=== PATIENT | female | born 1930 | race African-American/Black ===

== ENCOUNTER 2018-01-16 09:53 | Emergency (ER) | payer MEDICARE, MEDICAID ==
[~2018-01-16] VITALS: Ht 162.6 cm; Wt 54.0 kg
[~2018-01-16 09:53] MED LIST: ALBU6.7H INH; ASPI-1160 PO; CALC-993 PO; CEPH-569 PO; CLOP75TA16 PO; D-ME473S8 PO; GARL10005 PO; HYDR12.54 PO; LISI10TA5 PO; POLY17PO3 PO; SIMV20TA6 PO
[2018-01-16 10:58] LABS: BASOPHILS % 1.4 % (0.0-2.0); EOSINOPHILS % 3.1 % (0.0-5.0); HEMATOCRIT. 36.4 % (36.0-48.0); HEMOGLOBIN. 12.1 g/dL (12.0-16.0); MEAN CORPUSCULAR HEMOGLOBIN 27.4 pg (28.0-32.0); MEAN CORPUSCULAR VOLUME 82.6 fL (81.0-99.0); NEUTROPHILS % 47.5 % (40.0-76.0); PLATELET 212 x1000/uL (130-400); RED BLOOD CELL COUNT 4.41 mill/uL (4.2-5.4); RED CELL DISTRIBUTION WIDTH 17.5 % (11.6-14.6)
[2018-01-16 11:05] LABS: CHLORIDE 111 mEq/L (98-107); PROTHROMBIN TIME 10.8 sec (9.4-11.6)
[2018-01-16 11:08] LABS: CLARITY URINE TURBID (CLEAR); COLOR URINE YELLOW (YELLOW); KETONES URINE NEGATIVE (NEGATIVE); LEUKOCYTE ESTERASE URINE 3+ (NEGATIVE); NITRITE URINE POSITIVE (NEGATIVE); OCCULT BLOOD URINE 1+ (NEGATIVE); PROTEIN URINE TRACE (NEGATIVE); SPECIFIC GRAVITY URINE 1.013 (1.005-1.030); UROBILINOGEN URINE 0.2 E.U./dL (0.2-1.0)
[2018-01-16] MEDS ORDERED: SULFAMETHOXAZOLE/TRIMETHOPRIM 800/160MG TABLET PO NR (13:00)
[2018-01-16 14:48] VITALS: BP 156/85
== END 2018-01-16 14:48 | disposition home or self-care (01) ==
LOC: ER 09:53
DX: R68.83 Chills (without fever) (principal); N39.0 Urinary tract infection, site not specified; I25.10 Atherosclerotic heart disease of native coronary artery without angina pectoris; E78.00 Pure hypercholesterolemia, unspecified; I10 Essential (primary) hypertension; I25.2 Old myocardial infarction; Z95.1 Presence of aortocoronary bypass graft; Z79.82 Long term (current) use of aspirin; Z86.73 Personal history of transient ischemic attack (TIA), and cerebral infarction without residual deficits
CPT/HCPCS: 36415; 71045; 80053; 81003; 83880; 84145; 84484; 85025; 85610; 87077; 87086; 87186; 93005; 99285

== ENCOUNTER 2018-01-21 07:07 | Inpatient (IN) | payer MEDICARE, MEDICAID ==
[~2018-01-21] VITALS: Ht 167.6 cm; Wt 70.3 kg
[2018-01-21] MEDS ORDERED: SODIUM CHLORIDE 0.9% 1,000 ML IV ONE (07:30)
[2018-01-21 07:59] LABS: CHLORIDE 111 mEq/L (98-107)
[2018-01-21 08:02] LABS: BASOPHILS % 1.6 % (0.0-2.0); EOSINOPHILS % 2.7 % (0.0-5.0); HEMATOCRIT. 36.8 % (36.0-48.0); HEMOGLOBIN. 12.1 g/dL (12.0-16.0); LYMPHOCYTES % 36.5 % (20.0-50.0); MEAN CORPUSCULAR HEMOGLOBIN 27.1 pg (28.0-32.0); MEAN CORPUSCULAR VOLUME 82.1 fL (81.0-99.0); MEAN PLATELET VOLUME 10.2 fl (7.4-10.4); MONOCYTES % 10.1 % (2.0-8.0); NEUTROPHILS % 49.1 % (40.0-76.0); PLATELET 207 x1000/uL (130-400); RED BLOOD CELL COUNT 4.48 mill/uL (4.2-5.4); RED CELL DISTRIBUTION WIDTH 18.1 % (11.6-14.6)
[2018-01-21 08:08] LABS: CREATINE KINASE 120 IU/L (26-192)
[2018-01-21 09:16] LABS: CLARITY URINE CLEAR (CLEAR); COLOR URINE YELLOW (YELLOW); KETONES URINE NEGATIVE (NEGATIVE); LEUKOCYTE ESTERASE URINE 2+ (NEGATIVE); NITRITE URINE NEGATIVE (NEGATIVE); OCCULT BLOOD URINE NEGATIVE (NEGATIVE); PH URINE 6.5 (4.5-8.0); PROTEIN URINE NEGATIVE (NEGATIVE); SPECIFIC GRAVITY URINE 1.013 (1.005-1.030); UROBILINOGEN URINE 0.2 E.U./dL (0.2-1.0)
[2018-01-21] MEDS ORDERED: CEFTRIAXONE 1 G PREMIX 50 ML IV ONE (09:30)
[2018-01-21] MEDS ORDERED: KETOROLAC 15MG/ML VIAL IV ONE (09:45)
[2018-01-21 13:45] VITALS: BP 160/60
[2018-01-21] MEDS ORDERED: NA PHOS,M-B/NA PHOS,DI-BA ENEMA 118ML PR PRN (16:00)
[2018-01-21] MEDS ORDERED: ONDANSETRON HCL 4MG/2ML VIAL IV PRN (16:00)
[2018-01-21] MEDS ORDERED: DIPHENHYDRAMINE 50MG/ML VIAL IV PRN (16:00)
[2018-01-21] MEDS ORDERED: ACETAMINOPHEN 650MG SUPP PR PRN (16:00)
[2018-01-21] MEDS ORDERED: MAGNESIUM/ALUMINUM HYDROXIDE/SIMETHICONE 30ML UDC PO PRN (16:00)
[2018-01-21] MEDS ORDERED: GUAIFENESIN 200MG/10ML SUGAR FREE UDC PO PRN (16:00)
[2018-01-21] MEDS ORDERED: HYDROCODONE/ACETAMINOPHEN 5/325MG TABLET PO PRN (16:00)
[2018-01-21] MEDS ORDERED: ACETAMINOPHEN 650MG/20.3ML UDC GT PRN (16:00)
[2018-01-21] MEDS ORDERED: ENOXAPARIN 40MG/0.4ML SYR SUBCUT SCH (16:00)
[2018-01-21] MEDS ORDERED: CLONIDINE 0.1MG TABLET PO PRN (16:00)
[2018-01-21] MEDS ORDERED: ACETAMINOPHEN 325MG TABLET PO PRN (16:00)
[2018-01-21] MEDS ORDERED: DOCUSATE SODIUM 100MG CAPSULE PO PRN (16:00)
[2018-01-21 17:46] LABS: *AMPHETAMINES SCREEN URINE NEGATIVE (NEGATIVE); *BARBITURATES SCREEN URINE NEGATIVE (NEGATIVE); *BENZODIAZEPINES SCREEN URINE NEGATIVE (NEGATIVE); *COCAINE SCREEN URINE NEGATIVE (NEGATIVE)
[2018-01-21 17:47] LABS: METHADONE URINE SCREEN NEGATIVE (NEGATIVE); OPIATES URINE SCREEN NEGATIVE (NEGATIVE)
[2018-01-21] MEDS: SODIUM CHLORIDE 0.9% 1,000 ML IV SCH (17:51)
[2018-01-21] MEDS: ENOXAPARIN 30MG/0.3ML SYR SUBCUT SCH (17:51)
[2018-01-21 18:05] LABS: CANNABINOID URINE SCREEN NEGATIVE (NEGATIVE)
[2018-01-21 18:20] LABS: PHENCYCLIDINE URINE SCREEN NEGATIVE (NEGATIVE)
[2018-01-21 20:00] VITALS: BP 155/58
[2018-01-22] VITALS: BP 139/77
[2018-01-22 04:00] VITALS: BP 139/51
[2018-01-22 07:53] LABS: BASOPHILS % 1.5 % (0.0-2.0); EOSINOPHILS % 3.6 % (0.0-5.0); HEMATOCRIT. 36.2 % (36.0-48.0); HEMOGLOBIN. 11.8 g/dL (12.0-16.0); LYMPHOCYTES % 37.2 % (20.0-50.0); MEAN CORPUSCULAR HEMOGLOBIN 26.7 pg (28.0-32.0); MEAN CORPUSCULAR VOLUME 81.8 fL (81.0-99.0); MEAN PLATELET VOLUME 10.1 fl (7.4-10.4); MONOCYTES % 12.5 % (2.0-8.0); NEUTROPHILS % 45.2 % (40.0-76.0); PLATELET 201 x1000/uL (130-400); RED BLOOD CELL COUNT 4.42 mill/uL (4.2-5.4); RED CELL DISTRIBUTION WIDTH 17.7 % (11.6-14.6)
[2018-01-22 08:00] VITALS: BP 169/54
[2018-01-22 09:57] LABS: CHLORIDE 114 mEq/L (98-107)
[2018-01-22 10:18] LABS: HDL CHOLESTEROL 61 mg/dL (40-59)
[2018-01-22 10:20] LABS: LDL CHOLESTEROL 103 mg/dL (5-100)
[2018-01-22] MEDS: CEFTRIAXONE 1 G PREMIX 50 ML IV SCH (11:03)
[2018-01-22] MEDS: SODIUM CHLORIDE 0.9% 1,000 ML IV SCH ×2 (11:04→18:01)
[2018-01-22 12:00] VITALS: BP 162/66
[2018-01-22 16:00] VITALS: BP 152/87
[2018-01-22] MEDS: ENOXAPARIN 30MG/0.3ML SYR SUBCUT SCH (18:01)
[2018-01-22 20:00] VITALS: BP 170/62
[2018-01-23] VITALS: BP 159/46
[2018-01-23 04:00] VITALS: BP 139/49
[2018-01-23 08:00] VITALS: BP 158/63
[2018-01-23] MEDS: CEFTRIAXONE 1 G PREMIX 50 ML IV SCH (10:19)
[2018-01-23 12:00] VITALS: BP 152/59
[2018-01-23 16:00] VITALS: BP 115/70
[2018-01-23 19:10] VITALS: BP 115/70
[2018-01-23] MEDS: ENOXAPARIN 30MG/0.3ML SYR SUBCUT SCH (19:33)
== END 2018-01-23 20:15 | DRG 871 ==
LOC: ER 07:25 → 6EST 10:07 → ENRESERV 11:52
PROVIDERS: ADMIT Family Medicine; ATTEND Family Medicine
DX: A41.9 Sepsis, unspecified organism (principal); N17.0 Acute kidney failure with tubular necrosis; N39.0 Urinary tract infection, site not specified; I67.82 Cerebral ischemia; E44.1 Mild protein-calorie malnutrition; K57.30 Diverticulosis of large intestine without perforation or abscess without bleeding; I10 Essential (primary) hypertension; M19.90 Unspecified osteoarthritis, unspecified site; I25.10 Atherosclerotic heart disease of native coronary artery without angina pectoris; N28.1 Cyst of kidney, acquired; Z86.73 Personal history of transient ischemic attack (TIA), and cerebral infarction without residual deficits; Z87.440 Personal history of urinary (tract) infections; Z90.710 Acquired absence of both cervix and uterus; Z95.1 Presence of aortocoronary bypass graft; I25.2 Old myocardial infarction; Z79.1 Long term (current) use of non-steroidal anti-inflammatories (NSAID); Z88.1 Allergy status to other antibiotic agents; Z88.8 Allergy status to other drugs, medicaments and biological substances; Z79.51 Long term (current) use of inhaled steroids; Z79.899 Other long term (current) drug therapy; Z68.25 Body mass index [BMI] 25.0-25.9, adult; Z88.6 Allergy status to analgesic agent
CPT/HCPCS: 36415; 70450; 71045; 74176; 80053; 80061; 80305; 81003; 82550; 85025; 87086; 93005; 96374; 96375; 99285; C1893; J0696; J1650; J1885; J7030

== ENCOUNTER 2018-02-27 09:17 | Emergency (ER) | payer MEDICARE, MEDICAID ==
[~2018-02-27] VITALS: Ht 157.5 cm; Wt 76.0 kg
[2018-02-27 09:38] VITALS: BP 185/69
== END 2018-02-27 13:49 | disposition home or self-care (01) ==
LOC: ER 09:17
DX: H61.21 Impacted cerumen, right ear (principal); H66.91 Otitis media, unspecified, right ear; I11.9 Hypertensive heart disease without heart failure; I51.9 Heart disease, unspecified; Z88.8 Allergy status to other drugs, medicaments and biological substances; Z88.6 Allergy status to analgesic agent; Z88.1 Allergy status to other antibiotic agents
CPT/HCPCS: 69209; 99283

== ENCOUNTER 2018-07-28 10:56 | Emergency (ER) | payer OTHER, MEDICAID ==
[~2018-07-28] VITALS: Ht 152.4 cm; Wt 73.0 kg
[2018-07-28] MEDS ORDERED: ASPIRIN 81MG TABLET PO ONE (18:15)
[2018-07-28] MEDS ORDERED: FUROSEMIDE 40MG/4ML VIAL IV ONE (18:15)
[2018-07-28] MEDS ORDERED: LORAZEPAM 2MG/ML CPJ IM ONE (19:15)
[2018-07-28 19:27] LABS: BASOPHILS % 2.7 % (0.0-2.0); EOSINOPHILS % 3.5 % (0.0-5.0); HEMATOCRIT. 43.9 % (36.0-48.0); HEMOGLOBIN. 14.2 g/dL (12.0-16.0); LYMPHOCYTES % 33.1 % (20.0-50.0); MEAN CORPUSCULAR VOLUME 89.5 fL (81.0-99.0); MEAN PLATELET VOLUME 10.3 fl (7.4-10.4); MONOCYTES % 13.8 % (2.0-8.0); NEUTROPHILS % 46.9 % (40.0-76.0); PLATELET 175 x1000/uL (130-400); RED CELL DISTRIBUTION WIDTH 16.2 % (11.6-14.6)
[2018-07-28 19:29] LABS: CHLORIDE 114 mEq/L (98-107)
[2018-07-28 19:33] LABS: PROTHROMBIN TIME 10.5 sec (9.1-11.1)
[2018-07-28] MEDS ORDERED: CLONIDINE 0.2MG TABLET PO ONE (21:00)
[2018-07-29 00:30] VITALS: BP 100/45
== END 2018-07-29 00:30 | disposition short-term general hospital (02) ==
LOC: ER 11:38 → CANBEDREQ 07-29 01:52
DX: I11.9 Hypertensive heart disease without heart failure (principal); R06.02 Shortness of breath; R07.9 Chest pain, unspecified; Z86.73 Personal history of transient ischemic attack (TIA), and cerebral infarction without residual deficits; Z95.1 Presence of aortocoronary bypass graft; Z88.1 Allergy status to other antibiotic agents; Z88.6 Allergy status to analgesic agent; Z88.8 Allergy status to other drugs, medicaments and biological substances; Z79.01 Long term (current) use of anticoagulants; Z79.82 Long term (current) use of aspirin; Z79.899 Other long term (current) drug therapy
CPT/HCPCS: 36415; 71045; 80053; 83690; 83880; 84484; 85025; 85610; 85730; 93005; 93970; 96372; 96374; 99285; J1940; J2060

== ENCOUNTER 2018-08-02 06:28 | Emergency (ER) | payer OTHER, MEDICAID ==
[~2018-08-02] VITALS: Ht 160 cm; Wt 55.0 kg
[2018-08-02] MEDS ORDERED: ASPIRIN 325MG TABLET PO ONE (07:45)
[2018-08-02 07:55] LABS: BASOPHILS % 1.1 % (0.0-2.0); HEMATOCRIT. 40.5 % (36.0-48.0); HEMOGLOBIN. 13.5 g/dL (12.0-16.0); LYMPHOCYTES % 23.9 % (20.0-50.0); MEAN CORPUSCULAR HEMOGLOBIN 29.4 pg (28.0-32.0); MEAN CORPUSCULAR VOLUME 88.4 fL (81.0-99.0); MEAN PLATELET VOLUME 9.9 fl (7.4-10.4); MONOCYTES % 9.3 % (2.0-8.0); NEUTROPHILS % 63.7 % (40.0-76.0); PLATELET 156 x1000/uL (130-400); RED BLOOD CELL COUNT 4.58 mill/uL (4.2-5.4); RED CELL DISTRIBUTION WIDTH 16.6 % (11.6-14.6)
[2018-08-02 08:01] LABS: CHLORIDE 116 mEq/L (98-107)
[2018-08-02] MEDS ORDERED: CLONIDINE 0.1MG TABLET PO ONE (19:00)
[2018-08-02] MEDS ORDERED: FUROSEMIDE 20MG TABLET PO ONE (19:00)
[2018-08-02] MEDS ORDERED: ONDANSETRON HCL 4MG/2ML INJ IV ONE (21:15)
[2018-08-02] MEDS ORDERED: ONDANSETRON HCL 4MG/2ML INJ ONE (21:15)
[2018-08-02 23:05] VITALS: BP 110/91
== END 2018-08-02 23:26 | disposition home or self-care (01) ==
LOC: ER 06:28
DX: J11.1 Influenza due to unidentified influenza virus with other respiratory manifestations (principal); R07.9 Chest pain, unspecified; I11.9 Hypertensive heart disease without heart failure; Z88.1 Allergy status to other antibiotic agents; Z88.3 Allergy status to other anti-infective agents; Z88.6 Allergy status to analgesic agent; Z88.8 Allergy status to other drugs, medicaments and biological substances; Z95.1 Presence of aortocoronary bypass graft; Z79.82 Long term (current) use of aspirin; Z86.73 Personal history of transient ischemic attack (TIA), and cerebral infarction without residual deficits
CPT/HCPCS: 36415; 71045; 80053; 82962; 83880; 84484; 85025; 93005; 96374; 99284; J2405

== ENCOUNTER 2018-11-29 02:08 | Emergency (ER) | payer OTHER, MEDICAID ==
[~2018-11-29] VITALS: Ht 152.4 cm; Wt 54.0 kg
[~2018-11-29 02:08] MED LIST changes: -CLOP75TA16 PO; +CLOP75TA4 PO
[2018-11-29] MEDS ORDERED: ONDANSETRON HCL 4MG/2ML INJ IV STA (03:08)
[2018-11-29] MEDS ORDERED: MORPHINE SULFATE 4 MG/ML CPJ (NOT FOR IM USE) IV STA (03:08)
[2018-11-29] MEDS ORDERED: SODIUM CHLORIDE 0.9% 1,000 ML IV ONE (03:08)
[2018-11-29 03:47] LABS: CLARITY URINE CLOUDY (CLEAR); COLOR URINE YELLOW (YELLOW); KETONES URINE NEGATIVE (NEGATIVE); LEUKOCYTE ESTERASE URINE 3+ (NEGATIVE); NITRITE URINE NEGATIVE (NEGATIVE); OCCULT BLOOD URINE TRACE (NEGATIVE); PH URINE 5.5 (4.5-8.0); PROTEIN URINE NEGATIVE (NEGATIVE); SPECIFIC GRAVITY URINE 1.012 (1.005-1.030); UROBILINOGEN URINE 0.2 E.U./dL (0.2-1.0)
[2018-11-29 04:57] LABS: BASOPHILS % 0.8 % (0.0-2.0); EOSINOPHILS % 2.9 % (0.0-5.0); HEMATOCRIT. 39.9 % (36.0-48.0); HEMOGLOBIN. 13.3 g/dL (12.0-16.0); LYMPHOCYTES % 30.5 % (20.0-50.0); MEAN CORPUSCULAR HEMOGLOBIN 28.6 pg (28.0-32.0); MEAN CORPUSCULAR VOLUME 85.5 fL (81.0-99.0); MEAN PLATELET VOLUME 10.6 fl (7.4-10.4); MONOCYTES % 8.9 % (2.0-8.0); NEUTROPHILS % 56.9 % (40.0-76.0); PLATELET 185 x1000/uL (130-400); RED BLOOD CELL COUNT 4.67 mill/uL (4.2-5.4); RED CELL DISTRIBUTION WIDTH 16.9 % (11.6-14.6)
[2018-11-29 05:03] LABS: PARTIAL THROMBOPLASTIN TIME 27.5 sec (23.4-31.0)
[2018-11-29 05:11] LABS: CHLORIDE 111 mEq/L (98-107)
[2018-11-29] MEDS ORDERED: NITROFURANTOIN 100MG M/M CAPSULE PO ONE (05:15)
[2018-11-29 09:00] VITALS: BP 168/68
== END 2018-11-29 09:25 | disposition short-term general hospital (02) ==
LOC: ER 02:08 → EDBEDREQTM 05:52 → EDBEDREQ 05:52 → ENRESERV 07:11 → CANRESERV 07:11 → CANBEDREQ 07:17 → ER 09:25
DX: R53.1 Weakness (principal); N39.0 Urinary tract infection, site not specified; R60.9 Edema, unspecified; R55 Syncope and collapse; M71.22 Synovial cyst of popliteal space [Baker], left knee; I11.9 Hypertensive heart disease without heart failure; I25.2 Old myocardial infarction; M19.90 Unspecified osteoarthritis, unspecified site; Z86.73 Personal history of transient ischemic attack (TIA), and cerebral infarction without residual deficits; Z90.710 Acquired absence of both cervix and uterus; Z98.890 Other specified postprocedural states; Z95.1 Presence of aortocoronary bypass graft; Z79.82 Long term (current) use of aspirin; Z79.899 Other long term (current) drug therapy; Z88.1 Allergy status to other antibiotic agents; Z88.8 Allergy status to other drugs, medicaments and biological substances
CPT/HCPCS: 36415; 70450; 71045; 80053; 81003; 83880; 84484; 85025; 85610; 85730; 87086; 93005; 93970; 96374; 96375; 99285; J2270; J2405; J7030

== ENCOUNTER 2018-12-08 19:54 | Emergency (ER) | payer OTHER, MEDICAID ==
[~2018-12-08] VITALS: Ht 157.5 cm; Wt 71.0 kg
[2018-12-09] MEDS ORDERED: GUAIFENESIN/CODEINE 100-10MG/5ML UDC PO ONE (03:30)
[2018-12-09] MEDS ORDERED: IBUPROFEN 400MG TABLET PO ONE (03:30)
[2018-12-10 11:07] VITALS: BP 155/61
== END 2018-12-10 11:05 | disposition home or self-care (01) ==
LOC: ER 19:54
DX: R09.81 Nasal congestion (principal); I11.0 Hypertensive heart disease with heart failure; I50.9 Heart failure, unspecified; E78.00 Pure hypercholesterolemia, unspecified; Z88.3 Allergy status to other anti-infective agents; Z88.8 Allergy status to other drugs, medicaments and biological substances; Z95.1 Presence of aortocoronary bypass graft; Z79.82 Long term (current) use of aspirin; Z86.73 Personal history of transient ischemic attack (TIA), and cerebral infarction without residual deficits
CPT/HCPCS: 99283

== ENCOUNTER 2019-02-11 17:53 | Emergency (ER) | payer OTHER, MEDICAID ==
[~2019-02-11] VITALS: Ht 152.4 cm; Wt 75.0 kg
[2019-02-11] MEDS ORDERED: LORATADINE 10MG TABLET PO SCH (19:00)
[2019-02-11 19:30] VITALS: BP 150/59
== END 2019-02-11 19:35 | disposition home or self-care (01) ==
LOC: ER 19:01
DX: T78.40XA Allergy, unspecified, initial encounter (principal); I11.0 Hypertensive heart disease with heart failure; I50.9 Heart failure, unspecified; E78.00 Pure hypercholesterolemia, unspecified; M19.90 Unspecified osteoarthritis, unspecified site; X58.XXXA Exposure to other specified factors, initial encounter; Z88.3 Allergy status to other anti-infective agents; Z88.8 Allergy status to other drugs, medicaments and biological substances; Z95.1 Presence of aortocoronary bypass graft; Z79.82 Long term (current) use of aspirin; Z86.73 Personal history of transient ischemic attack (TIA), and cerebral infarction without residual deficits
CPT/HCPCS: 99282

== ENCOUNTER 2019-03-24 16:01 | Emergency (ER) | payer OTHER, MEDICAID ==
[~2019-03-24] VITALS: Ht 160 cm; Wt 61.0 kg
[2019-03-24 17:01] LABS: BASOPHILS % 1.8 % (0.0-2.0); EOSINOPHILS % 3.1 % (0.0-5.0); HEMOGLOBIN. 12.6 g/dL (12.0-16.0); LYMPHOCYTES % 31.6 % (20.0-50.0); MEAN CORPUSCULAR HEMOGLOBIN 29.3 pg (28.0-32.0); MEAN PLATELET VOLUME 10.1 fl (7.4-10.4); MONOCYTES % 11.5 % (2.0-8.0); PLATELET 201 x1000/uL (130-400); RED BLOOD CELL COUNT 4.31 mill/uL (4.2-5.4); RED CELL DISTRIBUTION WIDTH 16.6 % (11.6-14.6)
[2019-03-24 17:06] LABS: CHLORIDE 113 mEq/L (98-107)
[2019-03-24] MEDS ORDERED: ACETAMINOPHEN 325MG TABLET PO ONE (18:15)
[2019-03-24] MEDS ORDERED: ASPIRIN 81MG TABLET PO ONE (18:15)
[2019-03-24] MEDS ORDERED: CLONIDINE 0.1MG TABLET PO ONE (18:15)
[2019-03-24 20:40] VITALS: BP 167/81
== END 2019-03-24 21:22 | disposition short-term general hospital (02) ==
LOC: ER 16:01
DX: I11.0 Hypertensive heart disease with heart failure (principal); I50.9 Heart failure, unspecified; R07.89 Other chest pain; E78.00 Pure hypercholesterolemia, unspecified; Z95.1 Presence of aortocoronary bypass graft; Z86.73 Personal history of transient ischemic attack (TIA), and cerebral infarction without residual deficits; Z87.19 Personal history of other diseases of the digestive system; Z79.899 Other long term (current) drug therapy; Z88.8 Allergy status to other drugs, medicaments and biological substances; Z88.1 Allergy status to other antibiotic agents; Z88.2 Allergy status to sulfonamides
CPT/HCPCS: 36415; 71045; 83880; 84484; 93005; 99285

== ENCOUNTER 2019-04-03 23:39 | Emergency (ER) | payer OTHER, MEDICAID ==
[~2019-04-03] VITALS: Ht 154.9 cm; Wt 55.0 kg
[2019-04-04] MEDS ORDERED: LIDOCAINE 5% PATCH TOP STA (00:01)
[2019-04-04] MEDS ORDERED: MORPHINE SULFATE 2 MG/ML CPJ (NOT FOR IM USE) IV ONE (00:15)
[2019-04-04] MEDS ORDERED: ONDANSETRON HCL 4MG/2ML INJ IV ONE (00:15)
[2019-04-04] MEDS ORDERED: HYDROCODONE/ACETAMINOPHEN 10/325MG TABLET PO ONE (00:45)
[2019-04-04] MEDS ORDERED: ONDANSETRON 4MG ODT PO ONE (00:45)
[2019-04-04 01:07] LABS: EOSINOPHILS % 1.4 % (0.0-5.0); HEMATOCRIT. 36.5 % (36.0-48.0); HEMOGLOBIN. 12.2 g/dL (12.0-16.0); LYMPHOCYTES % 22.8 % (20.0-50.0); MEAN CORPUSCULAR VOLUME 89.4 fL (81.0-99.0); MEAN PLATELET VOLUME 10.5 fl (7.4-10.4); MONOCYTES % 11.6 % (2.0-8.0); NEUTROPHILS % 63.2 % (40.0-76.0); PLATELET 121 x1000/uL (130-400); RED BLOOD CELL COUNT 4.09 mill/uL (4.2-5.4); RED CELL DISTRIBUTION WIDTH 16.7 % (11.6-14.6)
[2019-04-04 01:13] LABS: CHLORIDE 110 mEq/L (98-107)
[2019-04-04 06:30] VITALS: BP 129/57
== END 2019-04-04 06:30 | disposition left against medical advice (07) ==
LOC: ER 04-04 00:19
DX: R10.9 Unspecified abdominal pain (principal); I10 Essential (primary) hypertension; Z88.1 Allergy status to other antibiotic agents; Z88.3 Allergy status to other anti-infective agents; Z88.8 Allergy status to other drugs, medicaments and biological substances; Z95.1 Presence of aortocoronary bypass graft; Z86.73 Personal history of transient ischemic attack (TIA), and cerebral infarction without residual deficits; Z98.890 Other specified postprocedural states
CPT/HCPCS: 36415; 80053; 83690; 85025; 99284; Q0162

== ENCOUNTER 2019-04-06 01:52 | Emergency (ER) | payer OTHER, MEDICAID ==
[~2019-04-06] VITALS: Ht 167.6 cm; Wt 66.0 kg
[2019-04-06] MEDS ORDERED: ACETAMINOPHEN 325MG TABLET PO ONE ×2 (05:45→13:45)
[2019-04-06] MEDS ORDERED: KETOROLAC 30MG/ML VIAL IV STA (06:09)
[2019-04-06 06:34] LABS: CHLORIDE 113 mEq/L (98-107)
[2019-04-06 06:36] LABS: PROTHROMBIN TIME 10.5 sec (9.6-11.0)
[2019-04-06 06:44] LABS: BASOPHILS % 0.8 % (0.0-2.0); HEMATOCRIT. 35.5 % (36.0-48.0); LYMPHOCYTES % 29.3 % (20.0-50.0); MEAN CORPUSCULAR HEMOGLOBIN 29.9 pg (28.0-32.0); MEAN CORPUSCULAR VOLUME 88.6 fL (81.0-99.0); MEAN PLATELET VOLUME 10.3 fl (7.4-10.4); MONOCYTES % 11.4 % (2.0-8.0); NEUTROPHILS % 54.5 % (40.0-76.0); PLATELET 125 x1000/uL (130-400); RED BLOOD CELL COUNT 4.01 mill/uL (4.2-5.4); RED CELL DISTRIBUTION WIDTH 16.5 % (11.6-14.6)
[2019-04-06 06:53] LABS: CLARITY URINE CLEAR (CLEAR); COLOR URINE YELLOW (YELLOW); KETONES URINE NEGATIVE (NEGATIVE); LEUKOCYTE ESTERASE URINE 1+ (NEGATIVE); NITRITE URINE NEGATIVE (NEGATIVE); OCCULT BLOOD URINE NEGATIVE (NEGATIVE); PROTEIN URINE NEGATIVE (NEGATIVE); UROBILINOGEN URINE 0.2 E.U./dL (0.2-1.0)
[2019-04-06] MEDS ORDERED: MAGNESIUM/ALUMINUM HYDROXIDE/SIMETHICONE 30ML UDC PO STA (20:58)
[2019-04-07] MEDS ORDERED: HYDROCHLOROTHIAZIDE 25MG TABLET PO ONE (08:30)
[2019-04-07] MEDS ORDERED: NITROFURANTOIN 100MG M/M CAPSULE PO ONE (15:45)
[2019-04-08] MEDS: NITROFURANTOIN 100MG M/M CAPSULE PO SCH ×2 (09:29→17:08)
[2019-04-08] MEDS ORDERED: HYDROCHLOROTHIAZIDE 25MG TABLET PO SCH (17:30)
[2019-04-08] MEDS: LISINOPRIL 10MG TABLET PO SCH (18:16)
[2019-04-09] MEDS ORDERED: MAGNESIUM/ALUMINUM HYDROXIDE/SIMETHICONE 30ML UDC PO STA (00:12)
[2019-04-09] MEDS ORDERED: MAGNESIUM/ALUMINUM HYDROXIDE/SIMETHICONE 30ML UDC PO SCH (00:30)
[2019-04-09] MEDS: LISINOPRIL 10MG TABLET PO SCH (09:23)
[2019-04-09] MEDS: NITROFURANTOIN 100MG M/M CAPSULE PO SCH (09:23)
[2019-04-09 11:39] VITALS: BP 158/67
== END 2019-04-09 11:45 | disposition home or self-care (01) ==
LOC: ER 01:52
DX: N39.0 Urinary tract infection, site not specified (principal); G89.29 Other chronic pain; M54.5 Low back pain; R45.851 Suicidal ideations; N20.0 Calculus of kidney; I10 Essential (primary) hypertension; Z59.0 Homelessness; Z75.1 Person awaiting admission to adequate facility elsewhere; Z88.3 Allergy status to other anti-infective agents; Z88.8 Allergy status to other drugs, medicaments and biological substances; Z79.82 Long term (current) use of aspirin
CPT/HCPCS: 36415; 76700; 80053; 81003; 83690; 85025; 85610; 96374; 99284; J1885

== ENCOUNTER 2019-04-10 21:54 | Emergency (ER) | payer OTHER, MEDICAID ==
[~2019-04-10] VITALS: Ht 162.6 cm; Wt 75.0 kg
[2019-04-11] MEDS ORDERED: MAGNESIUM HYDROXIDE 400MG/5ML 30ML UDC PO ONE (00:30)
[2019-04-11 10:10] VITALS: BP 138/78
== END 2019-04-11 10:11 | disposition home or self-care (01) ==
LOC: ER 21:54
DX: Z59.0 Homelessness (principal); Z76.0 Encounter for issue of repeat prescription; I12.9 Hypertensive chronic kidney disease with stage 1 through stage 4 chronic kidney disease, or unspecified chronic kidney disease; N18.9 Chronic kidney disease, unspecified; Z88.3 Allergy status to other anti-infective agents; Z88.8 Allergy status to other drugs, medicaments and biological substances; M19.90 Unspecified osteoarthritis, unspecified site; Z79.82 Long term (current) use of aspirin
CPT/HCPCS: 99283

== ENCOUNTER 2020-01-09 13:49 | Emergency (ER) | payer OTHER, MEDICAID ==
[~2020-01-09] VITALS: Ht 157.5 cm; Wt 72.7 kg
[~2020-01-09 13:49] MED LIST changes: -ALBU6.7H INH; +ALBU6.7H11 INH; +SIMV-43 PO; -SIMV20TA6 PO
[2020-01-09] MEDS ORDERED: SODIUM CHLORIDE 0.9% 1,000 ML IV ONE (15:26)
[2020-01-09] MEDS ORDERED: AMLODIPINE 10MG TABLET PO ONE (15:30)
[2020-01-09 16:34] LABS: EOSINOPHILS % 2.1 % (0.0-5.0); HEMATOCRIT. 38.2 % (36.0-48.0); HEMOGLOBIN. 12.9 g/dL (12.0-16.0); LYMPHOCYTES % 32.4 % (20.0-50.0); MEAN CORPUSCULAR VOLUME 92.3 fL (81.0-99.0); MEAN PLATELET VOLUME 10.1 fl (7.4-10.4); NEUTROPHILS % 54.5 % (40.0-76.0); PLATELET 144 x1000/uL (130-400); RED BLOOD CELL COUNT 4.14 mill/uL (4.2-5.4); RED CELL DISTRIBUTION WIDTH 15.1 % (11.6-14.6)
[2020-01-09 16:35] LABS: CHLORIDE 113 mEq/L (98-107)
[2020-01-09 17:30] VITALS: BP 167/75
== END 2020-01-09 19:18 | disposition home or self-care (01) ==
LOC: ER 13:49
DX: R53.1 Weakness (principal); I11.0 Hypertensive heart disease with heart failure; I50.9 Heart failure, unspecified; Z76.0 Encounter for issue of repeat prescription; E78.00 Pure hypercholesterolemia, unspecified; Z77.028 Contact with and (suspected) exposure to other hazardous aromatic compounds; Y92.9 Unspecified place or not applicable; Z88.1 Allergy status to other antibiotic agents; Z88.3 Allergy status to other anti-infective agents; Z88.8 Allergy status to other drugs, medicaments and biological substances; Z95.1 Presence of aortocoronary bypass graft; Z79.82 Long term (current) use of aspirin
CPT/HCPCS: 36415; 80053; 85025; 93005; 99284; J7030

== ENCOUNTER 2020-06-29 22:25 | Inpatient (IN) | payer BC, MEDICAID ==
[~2020-06-29] VITALS: Ht 167.6 cm; Wt 59.9 kg
[~2020-06-29 22:25] MED LIST changes: +CLOP-31 PO; -CLOP75TA4 PO
[2020-06-29] MEDS ORDERED: NITROGLYCERIN 0.4MG TABLET SL SL PRN (23:00)
[2020-06-29] MEDS ORDERED: ASPIRIN 81MG TABLET PO ONE (23:00)
[2020-06-29 23:34] LABS: CHLORIDE 114 mEq/L (98-107)
[2020-06-29 23:35] LABS: HEMATOCRIT. 40.9 % (36.0-48.0); HEMOGLOBIN. 13.8 g/dL (12.0-16.0); MEAN CORPUSCULAR HEMOGLOBIN 30.2 pg (28.0-32.0); MEAN CORPUSCULAR VOLUME 89.4 fL (81.0-99.0); MEAN PLATELET VOLUME 10.4 fl (7.4-10.4); PLATELET 133 x1000/uL (130-400); RED BLOOD CELL COUNT 4.58 mill/uL (4.2-5.4); RED CELL DISTRIBUTION WIDTH 14.2 % (11.6-14.6)
[2020-06-30 00:09] LABS: PLATELET ESTIMATE NORMAL
[2020-06-30] MEDS: HYDRALAZINE HCL 50MG TABLET PO SCH ×2 (00:15→14:04)
[2020-06-30] MEDS ORDERED: LORAZEPAM 0.5MG TABLET PO ONE (00:45)
[2020-06-30] MEDS ORDERED: NITROGLYCERIN 0.4MG TABLET SL SL PRN (05:30)
[2020-06-30] MEDS ORDERED: MAGNESIUM/ALUMINUM HYDROXIDE/SIMETHICONE 30ML UDC PO PRN (05:30)
[2020-06-30] MEDS ORDERED: CLONIDINE 0.1MG TABLET PO PRN (05:30)
[2020-06-30] MEDS ORDERED: ONDANSETRON HCL 4MG/2ML INJ IV PRN (05:30)
[2020-06-30] MEDS ORDERED: GUAIFENESIN 200MG/10ML SUGAR FREE UDC PO PRN (05:30)
[2020-06-30] MEDS ORDERED: LORAZEPAM 2MG/ML CPJ IV PRN (05:30)
[2020-06-30] MEDS ORDERED: MORPHINE SULFATE 2 MG/ML CPJ (NOT FOR IM USE) IV PRN (05:30)
[2020-06-30 06:55] LABS: CREATINE KINASE MB FRACTION 2.6 ng/mL (0.5-3.6)
[2020-06-30] MEDS: PANTOPRAZOLE SODIUM 40 MG/VIAL IV SCH (09:00)
[2020-06-30] MEDS: LISINOPRIL 20MG TABLET PO SCH (09:24)
[2020-06-30] MEDS: ENOXAPARIN 30MG/0.3ML SYR SUBCUT SCH (09:25)
[2020-06-30 10:15] LABS: T4 FREE 1.34 ng/dL (0.76-1.46)
[2020-06-30] MEDS: CLOPIDOGREL 75MG TABLET PO SCH (13:19)
[2020-07-01 05:26] LABS: CHLORIDE 115 mEq/L (98-107)
[2020-07-01 05:38] LABS: HDL CHOLESTEROL 59 mg/dL (40-59); LDL CHOLESTEROL 90 mg/dL (5-100)
[2020-07-01 05:42] LABS: CREATINE KINASE 187 IU/L (26-192)
[2020-07-01 05:43] LABS: CREATINE KINASE MB FRACTION 2.1 ng/mL (0.5-3.6)
[2020-07-01 05:59] LABS: BASOPHILS % 0.6 % (0.0-2.0); EOSINOPHILS % 0.2 % (0.0-5.0); HEMATOCRIT. 40.4 % (36.0-48.0); HEMOGLOBIN. 13.6 g/dL (12.0-16.0); LYMPHOCYTES % 14.1 % (20.0-50.0); MONOCYTES % 9.9 % (2.0-8.0); NEUTROPHILS % 75.2 % (40.0-76.0); PLATELET 138 x1000/uL (130-400); RED BLOOD CELL COUNT 4.53 mill/uL (4.2-5.4); RED CELL DISTRIBUTION WIDTH 14.2 % (11.6-14.6)
[2020-07-01] MEDS: HYDRALAZINE HCL 50MG TABLET PO SCH ×3 (06:00→21:57)
[2020-07-01 07:00] VITALS: BP 153/65
[2020-07-01 08:00] VITALS: BP_SYST 156; BP_SYST 157; BP_SYST 171; BP_DIAS 108; BP_DIAS 60; BP_DIAS 70
[2020-07-01] MEDS: ASPIRIN 81MG TABLET PO SCH (08:38)
[2020-07-01] MEDS: PANTOPRAZOLE SODIUM 40 MG/VIAL IV SCH (08:38)
[2020-07-01] MEDS: LISINOPRIL 20MG TABLET PO SCH (08:38)
[2020-07-01] MEDS: CLOPIDOGREL 75MG TABLET PO SCH (09:00)
[2020-07-01] MEDS ORDERED: POTASSIUM CHLORIDE 20MEQ TABLET SR PO NR (10:45)
[2020-07-01 12:00] VITALS: BP 110/52
[2020-07-01] MEDS: ENOXAPARIN 30MG/0.3ML SYR SUBCUT SCH (13:57)
[2020-07-01 16:00] VITALS: BP 114/60
[2020-07-01 22:00] VITALS: BP 133/64
[2020-07-02] MEDS: ACETAMINOPHEN 325MG TABLET PO PRN (03:04)
[2020-07-02 06:00] VITALS: BP 155/68
[2020-07-02] MEDS: HYDRALAZINE HCL 50MG TABLET PO SCH (06:10)
[2020-07-02 08:00] VITALS: BP 114/53
[2020-07-02] MEDS: CLOPIDOGREL 75MG TABLET PO SCH (09:00)
[2020-07-02] MEDS: LISINOPRIL 20MG TABLET PO SCH (09:10)
[2020-07-02] MEDS: ENOXAPARIN 30MG/0.3ML SYR SUBCUT SCH (09:10)
[2020-07-02] MEDS: ASPIRIN 81MG TABLET PO SCH (09:10)
[2020-07-02] MEDS: FAMOTIDINE 20MG/2ML VIAL IV SCH (10:36)
[2020-07-02 12:00] VITALS: BP 101/77
[2020-07-02] MEDS: HYDRALAZINE HCL 25MG TABLET PO SCH ×2 (15:05→22:00)
[2020-07-02 16:00] VITALS: BP 106/70
[2020-07-03] MEDS: HYDRALAZINE HCL 25MG TABLET PO SCH ×3 (06:20→22:00)
[2020-07-03 08:00] VITALS: BP 141/71
[2020-07-03] MEDS: ASPIRIN 81MG TABLET PO SCH (08:53)
[2020-07-03] MEDS: LISINOPRIL 20MG TABLET PO SCH (08:53)
[2020-07-03] MEDS: ENOXAPARIN 30MG/0.3ML SYR SUBCUT SCH (08:54)
[2020-07-03] MEDS: FAMOTIDINE 20MG/2ML VIAL IV SCH (09:53)
[2020-07-03 12:00] VITALS: BP 129/79
[2020-07-03] MEDS: CLOPIDOGREL 75MG TABLET PO SCH (14:33)
[2020-07-03 16:00] VITALS: BP 139/75
[2020-07-03 20:00] VITALS: BP 140/69
[2020-07-04] VITALS: BP 120/72
[2020-07-04] MEDS: ACETAMINOPHEN 325MG TABLET PO PRN (02:10)
[2020-07-04 04:00] VITALS: BP 135/64
[2020-07-04] MEDS: HYDRALAZINE HCL 25MG TABLET PO SCH ×3 (06:00→21:10)
[2020-07-04 06:36] LABS: CHLORIDE 111 mEq/L (98-107)
[2020-07-04 08:00] VITALS: BP 121/70
[2020-07-04] MEDS: ENOXAPARIN 30MG/0.3ML SYR SUBCUT SCH (09:00)
[2020-07-04] MEDS: FAMOTIDINE 20MG/2ML VIAL IV SCH (09:00)
[2020-07-04] MEDS: ASPIRIN 81MG TABLET PO SCH (09:09)
[2020-07-04] MEDS: LISINOPRIL 20MG TABLET PO SCH (09:09)
[2020-07-04] MEDS: CLOPIDOGREL 75MG TABLET PO SCH (09:09)
[2020-07-04 12:00] VITALS: BP 124/55
[2020-07-04] MEDS: DOCUSATE SODIUM 100MG CAPSULE PO PRN (14:50)
[2020-07-04 16:00] VITALS: BP 141/70
[2020-07-04 20:00] VITALS: BP 136/62
[2020-07-04] MEDS: FAMOTIDINE 20MG TABLET PO SCH (21:37)
[2020-07-05] MEDS: DOCUSATE SODIUM 100MG CAPSULE PO PRN (02:19)
[2020-07-05] MEDS: HYDRALAZINE HCL 25MG TABLET PO SCH ×3 (05:38→22:52)
[2020-07-05] MEDS ORDERED: *PATIENT'S OWN MEDICATION STORAGE XX SCH (07:15)
[2020-07-05 08:00] VITALS: BP 135/54
[2020-07-05] MEDS: ENOXAPARIN 40MG/0.4ML SYR SUBCUT SCH ×2 (09:00→10:44)
[2020-07-05] MEDS: FAMOTIDINE 20MG/2ML VIAL IV SCH ×2 (09:00→10:45)
[2020-07-05] MEDS: LISINOPRIL 20MG TABLET PO SCH ×2 (09:00→10:44)
[2020-07-05] MEDS: ASPIRIN 81MG TABLET PO SCH ×2 (09:00→10:44)
[2020-07-05] MEDS: CLOPIDOGREL 75MG TABLET PO SCH ×2 (09:00→10:45)
[2020-07-05] MEDS ORDERED: LORAZEPAM 2MG/ML CPJ IV PRN (17:15)
[2020-07-05 22:00] VITALS: BP 155/78
[2020-07-05] MEDS: FAMOTIDINE 20MG TABLET PO SCH (22:52)
[2020-07-05] MEDS: ACETAMINOPHEN 325MG TABLET PO PRN (22:52)
[2020-07-06] MEDS: DOCUSATE SODIUM 100MG CAPSULE PO PRN (01:09)
[2020-07-06 06:00] VITALS: BP 137/58
[2020-07-06] MEDS: HYDRALAZINE HCL 25MG TABLET PO SCH ×4 (06:00→20:35)
[2020-07-06 08:00] VITALS: BP 125/53
[2020-07-06] MEDS: CLOPIDOGREL 75MG TABLET PO SCH ×2 (09:00→09:14)
[2020-07-06] MEDS: LISINOPRIL 20MG TABLET PO SCH ×2 (09:00→09:15)
[2020-07-06] MEDS: ASPIRIN 81MG TABLET PO SCH ×2 (09:00→09:14)
[2020-07-06] MEDS: FAMOTIDINE 20MG/2ML VIAL IV SCH ×2 (09:00→09:14)
[2020-07-06] MEDS: ENOXAPARIN 40MG/0.4ML SYR SUBCUT SCH ×2 (09:00→09:14)
[2020-07-06 13:59] VITALS: BP 136/72
[2020-07-06 20:00] VITALS: BP 154/64
[2020-07-06] MEDS: ACETAMINOPHEN 325MG TABLET PO PRN (20:35)
[2020-07-06] MEDS: FAMOTIDINE 20MG TABLET PO SCH (20:35)
[2020-07-07] MEDS: HYDRALAZINE HCL 25MG TABLET PO SCH ×3 (05:02→22:24)
[2020-07-07 08:00] VITALS: BP 146/70
[2020-07-07] MEDS: ASPIRIN 81MG TABLET PO SCH (08:55)
[2020-07-07] MEDS: CLOPIDOGREL 75MG TABLET PO SCH (08:55)
[2020-07-07] MEDS: FAMOTIDINE 20MG/2ML VIAL IV SCH (09:00)
[2020-07-07] MEDS: LISINOPRIL 20MG TABLET PO SCH (09:00)
[2020-07-07] MEDS: ENOXAPARIN 40MG/0.4ML SYR SUBCUT SCH (09:00)
[2020-07-07 13:44] LABS: BG BASE EXCESS -0.1 mmol/L (-2.0-2.0); BG CARBOXYHEMOGLOBIN 0.4 % (0.5-1.5); BG DEOXYHEMOGLOBIN 2.5 % (0.0-5.0); BG HCO3 ACT 24.2 mmol/L (22.0-26.0); BG METHEMOGLOBIN 0.1 % (0.0-1.5); BG OXYGEN SATURATION 97.5 % (92.0-98.5); BG PCO2 38.5 mmHg (35.0-45.0); BG PH 7.416 (7.350-7.450); BG PO2 93.8 mmHg (75.0-100.0); BG SAMPLE SITE RIGHT RADIAL; BG TOTAL HEMOGLOBIN 13.4 g/dL (12.0-18.0); BG VENT MODE ROOM AIR
[2020-07-07 21:51] VITALS: BP 157/70
[2020-07-07] MEDS: FAMOTIDINE 20MG TABLET PO SCH (22:23)
[2020-07-08 06:00] VITALS: BP 172/58
[2020-07-08] MEDS: HYDRALAZINE HCL 25MG TABLET PO SCH ×3 (06:46→21:23)
[2020-07-08 08:00] VITALS: BP 118/50
[2020-07-08] MEDS: LISINOPRIL 20MG TABLET PO SCH (08:42)
[2020-07-08] MEDS: CLOPIDOGREL 75MG TABLET PO SCH (08:42)
[2020-07-08] MEDS: ASPIRIN 81MG TABLET PO SCH (08:42)
[2020-07-08] MEDS: ENOXAPARIN 40MG/0.4ML SYR SUBCUT SCH (08:43)
[2020-07-08 20:00] VITALS: BP 139/52
[2020-07-08] MEDS: FAMOTIDINE 20MG TABLET PO SCH (21:30)
[2020-07-09] MEDS: HYDRALAZINE HCL 25MG TABLET PO SCH ×4 (06:00→21:04)
[2020-07-09 07:05] LABS: HEMATOCRIT 38.5 % (36.0-48.0); HEMOGLOBIN 12.9 g/dL (12.0-16.0); MEAN CORPUSCULAR HEMOGLOBIN 30.1 pg (28.0-32.0); MEAN CORPUSCULAR VOLUME 89.7 fL (81.0-99.0); PLATELET 267 x1000/uL (130-400); RED CELL DISTRIBUTION WIDTH 14.4 % (11.6-14.6)
[2020-07-09 07:14] LABS: CHLORIDE 111 mEq/L (98-107)
[2020-07-09 08:00] VITALS: BP 128/71
[2020-07-09] MEDS: ENOXAPARIN 40MG/0.4ML SYR SUBCUT SCH (09:03)
[2020-07-09] MEDS: CLOPIDOGREL 75MG TABLET PO SCH (09:03)
[2020-07-09] MEDS: ASPIRIN 81MG TABLET PO SCH (09:03)
[2020-07-09] MEDS: LISINOPRIL 20MG TABLET PO SCH (09:04)
[2020-07-09 20:00] VITALS: BP 91/48
[2020-07-09] MEDS: FAMOTIDINE 20MG TABLET PO SCH (22:09)
[2020-07-10] VITALS: BP 108/51
[2020-07-10 04:00] VITALS: BP 110/61
[2020-07-10] MEDS: HYDRALAZINE HCL 25MG TABLET PO SCH ×3 (05:37→22:13)
[2020-07-10 08:00] VITALS: BP 126/49
[2020-07-10] MEDS: ENOXAPARIN 40MG/0.4ML SYR SUBCUT SCH (09:37)
[2020-07-10] MEDS: ASPIRIN 81MG TABLET PO SCH (09:37)
[2020-07-10] MEDS: CLOPIDOGREL 75MG TABLET PO SCH (09:38)
[2020-07-10] MEDS: LISINOPRIL 20MG TABLET PO SCH (09:38)
[2020-07-10 12:00] VITALS: BP 151/64
[2020-07-10 16:00] VITALS: BP 128/68
[2020-07-10 20:00] VITALS: BP 125/59
[2020-07-10] MEDS: FAMOTIDINE 20MG TABLET PO SCH (22:13)
[2020-07-11] VITALS: BP 121/59
[2020-07-11 04:00] VITALS: BP 110/52
[2020-07-11] MEDS: HYDRALAZINE HCL 25MG TABLET PO SCH ×3 (06:07→21:27)
[2020-07-11 08:00] VITALS: BP 124/51
[2020-07-11] MEDS: ENOXAPARIN 40MG/0.4ML SYR SUBCUT SCH (10:04)
[2020-07-11] MEDS: LISINOPRIL 20MG TABLET PO SCH (10:05)
[2020-07-11] MEDS: ASPIRIN 81MG TABLET PO SCH (10:05)
[2020-07-11] MEDS: CLOPIDOGREL 75MG TABLET PO SCH (10:05)
[2020-07-11 12:00] VITALS: BP 108/52
[2020-07-11 16:00] VITALS: BP 128/68
[2020-07-11] MEDS: FAMOTIDINE 20MG TABLET PO SCH (21:26)
[2020-07-12] MEDS: HYDRALAZINE HCL 25MG TABLET PO SCH ×2 (05:58→15:22)
[2020-07-12 08:00] VITALS: BP 155/70
[2020-07-12] MEDS: LISINOPRIL 20MG TABLET PO SCH (09:47)
[2020-07-12] MEDS: CLOPIDOGREL 75MG TABLET PO SCH (09:47)
[2020-07-12] MEDS: ASPIRIN 81MG TABLET PO SCH (09:47)
[2020-07-12] MEDS: ENOXAPARIN 40MG/0.4ML SYR SUBCUT SCH (09:48)
[2020-07-12 12:00] VITALS: BP 120/70
[2020-07-12 16:00] VITALS: BP 115/72
[2020-07-12 16:37] VITALS: BP 115/72
== END 2020-07-12 19:15 | DRG 205 ==
LOC: ER 22:25 → MICUSO 06-30 03:37 → EDBEDREQ 06-30 03:39 → EDBEDREQTM 06-30 03:39 → EDBEDREQDT 06-30 03:39 → 7EST 07-01 04:13 → 6WST 07-04 22:00 → 7EST 07-09 17:53
PROVIDERS: ADMIT Hospitalist; ATTEND Hospitalist
PROC: 05HY33Z Insertion of Infusion Device into Upper Vein, Percutaneous Approach (ICD-10-PCS; principal; 2020-06-30)
PROC: B54MZZA Ultrasonography of Right Upper Extremity Veins, Guidance (ICD-10-PCS; 2020-06-30)
DX: M94.0 Chondrocostal junction syndrome [Tietze] (principal); U07.1 COVID-19; I25.110 Atherosclerotic heart disease of native coronary artery with unstable angina pectoris; I11.0 Hypertensive heart disease with heart failure; I50.9 Heart failure, unspecified; E78.5 Hyperlipidemia, unspecified; E78.00 Pure hypercholesterolemia, unspecified; Z86.73 Personal history of transient ischemic attack (TIA), and cerebral infarction without residual deficits; Z95.1 Presence of aortocoronary bypass graft; Z88.8 Allergy status to other drugs, medicaments and biological substances; Z88.2 Allergy status to sulfonamides; Z79.51 Long term (current) use of inhaled steroids; Z79.899 Other long term (current) drug therapy; Z79.82 Long term (current) use of aspirin
CPT/HCPCS: 36415; 36600; 71045; 76937; 80048; 80053; 80061; 82375; 82550; 82553; 82805; 83036; 83880; 84439; 84443; 84484; 85025; 85027; 85379; 87635; 93005; 93306; 93970; 96372; 99285; C1725; C9113; J1650; J2060; J2405; J3490; U0003

== ENCOUNTER 2020-11-05 07:01 | Emergency (ER) | payer BC, MEDICAID ==
[~2020-11-05] VITALS: Ht 165.1 cm; Wt 54.0 kg
[~2020-11-05 07:01] MED LIST changes: -CEPH-569 PO; -HYDR12.54 PO; +LISI10TA26 PO; -LISI10TA5 PO
[2020-11-05 07:42] VITALS: BP 170/86
[2020-11-05] MEDS ORDERED: ACETAMINOPHEN 325MG TABLET PO ONE (08:00)
== END 2020-11-05 09:59 | disposition home or self-care (01) ==
LOC: ER 07:48
DX: M54.2 Cervicalgia (principal); R32 Unspecified urinary incontinence; I10 Essential (primary) hypertension; Z88.3 Allergy status to other anti-infective agents; Z88.8 Allergy status to other drugs, medicaments and biological substances; Z86.73 Personal history of transient ischemic attack (TIA), and cerebral infarction without residual deficits
CPT/HCPCS: 93005; 99283